=== PATIENT | female | born 1975 | race Caucasian/White ===

== ENCOUNTER 2018-02-04 09:00 | Inpatient (IN) | payer BC ==
[2018-02-04] MEDS: ELECTROLYTE-148 SOLN 1,000 ML IV SCH (10:00)
[2018-02-04] MEDS ORDERED: CITRIC ACID/SODIUM CITRATE 30 ML UNIT-DOSE CUP PO ONE (10:26)
[2018-02-04 10:47] VITALS: BMI 28.3
[2018-02-04] MEDS ORDERED: ONDANSETRON 4 MG/2 ML VIAL IVPUSH PRN (10:55)
[2018-02-04] MEDS ORDERED: morphine SULFATE/Preservative Free 0.5 MG/ML (1cc Syringe) EP ONE (10:55)
[2018-02-04] MEDS ORDERED: ceFAZolin SODIUM 1 GM VIAL ONE ×2 (11:02→18:34)
--- NOTE | 2018-02-04 11:06 | HP ---
Past Medical History - Primary Care Physician PCP:: Sander Orourke ( ) - Admission Chief Complaint: 39 weeks by date , 38 by sono, previous myomectomy, previous c/s , request of repeat c/s and BTL History of Present Illness: 42 yo f , with previous hx of myomectomy, one previous c/s, AMA , hx of bradycardia , admitted for repeat c/s and BTL , risks of repeat c/s with previous myomectomy, discussed , also aware BTL is permenant and has small failure risks and risks of ectopic History Source: Patient Limitations to Obtaining History: No Limitations - Past Medical History ...: 2 ...Para: 1 ...Term: 1 ...: 0 ...Spon : 0 ...Induced : 0 ...Multiple Gestation: 0 ...LMP: 07/14/17 ... Weeks Gestation by Dates: 39.3 ...EDC by Dates: 02/08/18 ...EDC by Sono: 02/17/18 Additional OB History: hx of romero cardia ,normal ECHO Heme/Onc: Yes: Anemia - Past Surgical History Past Surgical History: Yes: (previous myomectomy) Hx Myomectomy: Yes - Smoking History Smoking history: Never smoked Have you smoked in the past 12 months: No Aproximately how many cigarettes per day: 1 - Alcohol/Substance Use Hx Alcohol Use: No History of Substance Use: reports: None - Social History History of Recent Travel: No Home Medications - Allergies Allergies/Adverse Reactions: Allergies Allergy/AdvReac Type Severity Reaction Status Date / Time No Known Drug Allergies Allergy Verified 02/04/18 10:08 - Home Medications Home Medications: Ambulatory Orders Vit/Iron Fum/Folic AC [ Tablet] 1 each PO DAILY MDD 1 01/24/16 Ferrous Sulfate [Iron] 325 mg PO DAILY 02/04/18 Review of Systems - Review of Systems Constitutional: reports: No Symptoms Eyes: reports: No Symptoms HENT: reports: No Symptoms Neck: reports: No Symptoms Cardiovascular: reports: No Symptoms Respiratory: reports: No Symptoms Gastrointestinal: reports: No Symptoms Genitourinary: reports: No Symptoms Breasts: reports: No Symptoms Reported Musculoskeletal: reports: No Symptoms Integumentary: reports: No Symptoms Neurological: reports: No Symptoms Endocrine: reports: No Symptoms Hematology/Lymphatic: reports: No Symptoms Psychiatric: reports: No Symptoms Physical Exam - Maternity Vital Signs: Vital Signs Temperature 97.9 F 02/04/18 10:00 Pulse Rate 79 02/04/18 10:00 Respiratory Rate 18 02/04/18 10:00 Blood Pressure 125/84 02/04/18 10:00 O2 Sat by Pulse Oximetry (%) Constitutional: Yes: Well Nourished, No Distress, Calm Eyes: Yes: WNL, Conjunctiva Clear, EOM Intact HENT: Yes: WNL, Atraumatic, Normocephalic Neck: Yes: WNL, Supple, Trachea Midline Cardiovascular: Yes: WNL, Regular Rate and Rhythm Breast(s): Yes: WNL - Abdominal Exam/OB Fundal Height: 38 Number of Fetuses: Single Presentation: Vertex Contractions: No Intensity: Unaware Monitor Mode: External Heart Rate (range): 107 to 110 Heart Rate Location: [facility] Category: I - Vaginal Exam/OB Vaginal Bleediing: No Speculum Exam: No Dilatation (cm): closed Effacement (%): 0 Amniotic Membrane Status: Intact Presentation: Vertex/Position Station: -3 - Physical Exam Musculoskeletal: Yes: WNL Extremities: Yes: WNL Edema: Yes Edema: LLE: Trace, RLE: Trace Integumentary: Yes: WNL Deep Tendon Reflex Grade: Normal +2 ...Motor Strength: WNL Psychiatric: Yes: WNL Hemorrhage Risk Assessment - Risk Factors Medium Risk Factors: Yes: Prior , uterine surgery,or multiple laparotomies, Large myomas Risk Score: 2 Risk Level: High Risk Problem List - Problems (1) with 39 completed weeks gestation Code(s): Z3A.39 - 39 WEEKS GESTATION OF (2) Previous section complicating Code(s): O34.219 - MATERNAL CARE FOR UNSP TYPE SCAR FROM PREVIOUS DEL (3) H/O: myomectomy Code(s): Z98.89 - OTHER SPECIFIED POSTPROCEDURAL STATES * DO NOT USE * (4) Advanced maternal age (AMA) in Code(s): CAC9412 - (5) Sterilization Code(s): Z30.2 - ENCOUNTER FOR STERILIZATION (6) Bradycardic baseline heart rate Code(s): O36.8390 - MATERN CARE FOR ABNLT FETL HRT RATE OR RHYM, UNSP TRI, UNSP Assessment/Plan repeat c/s , BTL, rba discussed
[2018-02-04] MEDS ORDERED: ePHEDrine SULFATE 50 MG/1 ML AMPULE ONE (11:16)
[2018-02-04] MEDS ORDERED: SODIUM CHLORIDE 0.9% P/F 10 ML VIAL IJ ONE (11:16)
[2018-02-04] MEDS ORDERED: OXYTOCIN 20 UNITS in 0.9% NS 20 UNIT/1,000 ML INFUS.BAG IV ONE ×2 (11:27→13:50)
[2018-02-04] MEDS ORDERED: oxyCODONE HCL 5 MG TABLET PO PRN (12:29)
[2018-02-04] MEDS ORDERED: diphenhydrAMINE HCL 25 MG CAPSULE (FP) PO PRN (12:29)
[2018-02-04] MEDS ORDERED: BENZOCAINE 28 GM HEMORRHOIDAL OINTMENT PR PRN (12:29)
[2018-02-04] MEDS ORDERED: METHYLERGONOVINE MALEATE 0.2 MG/1 ML AMP IM PRN (12:29)
[2018-02-04] MEDS ORDERED: IBUPROFEN 800 MG/8 ML IJ IVPB PRN (12:29)
[2018-02-04] MEDS ORDERED: BENZOCAINE 20% 57 GM BOTTLE TP PRN (12:29)
[2018-02-04] MEDS ORDERED: WITCH HAZEL 50% (TUCKS) 40 PAD/JAR PAD TP PRN (12:29)
[2018-02-04] MEDS ORDERED: OXYTOCIN 20 UNITS in 0.9% NS 20 UNIT/1,000 ML INFUS.BAG IV SCH (12:30)
--- NOTE | 2018-02-04 13:19 | OP ---
DATE OF OPERATION: 02/04/2018 PREOPERATIVE DIAGNOSES: at 39 weeks by dates, previous myomectomy, previous section, advanced maternal age, voluntary sterilization, and bradycardia. POSTOPERATIVE DIAGNOSES: at 39 weeks by dates, previous myomectomy, previous section, advanced maternal age, voluntary sterilization, and bradycardia. PROCEDURE: Repeat low segment transverse section. SURGEON: Sander Peoples MD BARREL LATHE OPERATOR: Serena Marquez MD ESTIMATED BLOOD LOSS: 500 mL. FINDINGS: A live baby Apgars 9/9, ROT position. DESCRIPTION OF PROCEDURE: The patient was taken to the operating room under adequate epidural anesthesia. Abdomen and perineum were prepped and draped. Pfannenstiel abdominal skin incision was made. Abdominal wall was cut layer by layer until the peritoneum was exposed and incised. Upon entering the abdominal cavity, lower uterine segment was identified, and uterovesical fold of peritoneum established. Bladder was pushed down. A low transverse uterine incision was made. Incision was extended laterally. Amniotic sac was entered. Clear fluid. Head delivered from right occiput transverse position. Nasopharynx was suctioned, and live baby was delivered. Apgars 9/9. Placenta was delivered manually. Uterine cavity was cleaned of all remaining tissue. Uterine incision was closed in 2 layers, the first layer with 0 Biosyn continuous suture, the second layer with 0 Biosyn imbricating the first layer. Bladder flap was closed with 0 Biosyn continuous suture. Both tubes and ovaries were checked and were normal. Smiley was placed along the left tubal mesosalpinx and then the tube was removed with a cautery, and a clamp was replaced with a 0 Biosyn suture bilaterally. Both fallopian tubes were removed. Both ovaries were normal. No active bleeding was seen. All of the lap pad, sponge, and instrument counts were correct. Uterus had multiple fibroids on it intramural. Peritoneum was closed with 0 Biosyn continuous suture. Muscles were brought together with interrupted sutures of 0 Biosyn. Fascia was closed with 0 Biosyn continuous suture, subcutaneous fat interrupted suture of 0 Biosyn and the skin was closed with 4-0 Biosyn subcuticular suture. The patient tolerated the procedure well and left the OR in good condition. SANDER PEOPLES M.D. [id number]
[2018-02-04] MEDS: CEFAZOLIN 1 GM in DEXTROSE 5%-WATER 100 ML IVPB SCH (18:39)
[2018-02-04] MEDS: SIMETHICONE 80 MG TAB.CHEW (FP) PO PRN (23:02)
[2018-02-05] MEDS ORDERED: ceFAZolin SODIUM 1 GM VIAL ONE (01:08)
[2018-02-05] MEDS: CEFAZOLIN 1 GM in DEXTROSE 5%-WATER 100 ML IVPB SCH (01:16)
[2018-02-05 08:06] LABS: BASO % 0.2 % (0-2.0); EOS % 0.6 % (0-4.5); HEMATOCRIT 30.3 % (32.4-45.2); HEMOGLOBIN 10.1 GM/dL (10.7-15.3); LYMPH % 9.1 % (8-40); MCH 27.5 pg (25.7-33.7); MCHC 33.2 g/dl (32.0-36.0); MONO % 5.6 % (3.8-10.2); NEUT % 84.5 % (42.8-82.8); PLATELET COUNT 129 K/MM3 (134-434); RBC 3.65 M/mm3 (3.60-5.2); RDW 17.2 % (11.6-15.6); WHITE BLOOD COUNT 8.5 K/mm3 (4.0-10.0)
[2018-02-05] MEDS: ENOXAPARIN NA (PORCINE) 40 MG/0.4 ML DISP.SYRIN SQ SCH (08:59)
--- NOTE | 2018-02-05 11:15 | PN ---
Progress Note (short form) - Note Progress Note: Pot op day#1.S/P C section under spinal anesthesia with duramorph uneventful Patient stable and has little pain for which she is on medication.No any anesthesia related problem.Patient Dc from the anesthesia care.
[2018-02-05] MEDS ORDERED: BISACODYL 10 MG SUPP.RECT RC PRN (12:29)
[2018-02-05] MEDS: IBUPROFEN 600 MG TABLET (FP) PO PRN ×2 (17:51→22:04)
[2018-02-05] MEDS: SIMETHICONE 80 MG TAB.CHEW (FP) PO PRN ×2 (17:51→22:05)
[2018-02-05] MEDS: DEXTROSE 5%-LACTATED RINGERS 1,000 ML IV SCH (18:54)
[2018-02-05] MEDS: ELECTROLYTE-148 SOLN 1,000 ML IV SCH (18:54)
[2018-02-05] MEDS: SENNOSIDES/DOCUSATE COMBO (SENNA PLUS) TABLET (UD) PO PRN (22:05)
[2018-02-06] MEDS: IBUPROFEN 600 MG TABLET (FP) PO PRN ×4 (04:47→22:11)
[2018-02-06] MEDS: SIMETHICONE 80 MG TAB.CHEW (FP) PO PRN ×4 (04:47→22:10)
[2018-02-06] MEDS: oxyCODONE HCL 5 MG TABLET PO PRN ×4 (04:49→22:11)
--- NOTE | 2018-02-06 07:04 | PN ---
Post Progress Note - Subjective Subjective: 42 yo status post repeat , seen and evaluated. No complaints Post Day: 1 Type of Delivery: Repeat C/S Vital Signs: Vital Signs Temperature 97.9 F 02/05/18 21:40 Pulse Rate 71 02/05/18 21:40 Respiratory Rate 18 02/05/18 21:40 Blood Pressure 125/71 02/05/18 21:40 O2 Sat by Pulse Oximetry (%) 100 02/04/18 14:30 Breast Exam: Yes: Soft Incision: Yes: Dressing dry and intact Abdomen/GI: Yes: Abdomen soft Lochia: Yes: Rubra Lochia, amount: Small Extremities: Yes: Calves non-tender Perineum: Yes: Intact Activity: Ambulating - Labs Labs: CBC WBC 8.5 K/mm3 (4.0-10.0) D 02/05/18 07:35 RBC 3.65 M/mm3 (3.60-5.2) 02/05/18 07:35 Hgb 10.1 GM/dL (10.7-15.3) L 02/05/18 07:35 Hct 30.3 % (32.4-45.2) L 02/05/18 07:35 MCV 83.0 fl (80-96) 02/05/18 07:35 MCH 27.5 pg (25.7-33.7) 02/05/18 07:35 MCHC 33.2 g/dl (32.0-36.0) 02/05/18 07:35 RDW 17.2 % (11.6-15.6) H 02/05/18 07:35 Plt Count 129 K/MM3 (134-434) L 02/05/18 07:35 MPV 8.0 fl (7.5-11.1) 02/05/18 07:35 Absolute Neuts (auto) 7.2 # 02/05/18 07:35 Neutrophils % 84.5 % (42.8-82.8) H D 02/05/18 07:35 Lymphocytes % 9.1 % (8-40) D 02/05/18 07:35 Monocytes % 5.6 % (3.8-10.2) 02/05/18 07:35 Eosinophils % 0.6 % (0-4.5) D 02/05/18 07:35 Basophils % 0.2 % (0-2.0) 02/05/18 07:35 Nucleated RBC % 0 % (0-0) 02/05/18 07:35 Problem List - Problems (1) Status post repeat low transverse section Code(s): Z98.891 - HISTORY OF UTERINE SCAR FROM PREVIOUS SURGERY Assessment/Plan Status post repeat Stable Ambulation Analgesia as needed Continue routine post op care
[2018-02-06] MEDS: ENOXAPARIN NA (PORCINE) 40 MG/0.4 ML DISP.SYRIN SQ SCH (09:24)
--- NOTE | 2018-02-06 10:25 | PN ---
Post Progress Note - Subjective Subjective: Patient without acute complaints. Reports tolerating oral intake without nausea or vomiting. Ambulating without dizziness. Denies fevers or chills. Pain well controlled with oral pain medication. without difficulty. Passing flatus. Post Day: 2 Type of Delivery: Repeat C/S Vital Signs: Vital Signs Temperature 97.9 F 02/05/18 21:40 Pulse Rate 71 02/05/18 21:40 Respiratory Rate 18 02/05/18 21:40 Blood Pressure 125/71 02/05/18 21:40 O2 Sat by Pulse Oximetry (%) 100 02/04/18 14:30 Breast Exam: Yes: Soft Uterus: Yes: Fundus Firm Incision: Yes: Dressing dry and intact Abdomen/GI: Yes: Abdomen soft, Tender (mild incisional), Passing flatus, Tolerating PO. No: Abdominal Distention Lochia: Yes: Serosa Lochia, amount: Small Extremities: Yes: Calves non-tender, Edema (trace pedal) Activity: Ambulating - Labs Labs: CBC WBC 8.5 K/mm3 (4.0-10.0) D 02/05/18 07:35 RBC 3.65 M/mm3 (3.60-5.2) 02/05/18 07:35 Hgb 10.1 GM/dL (10.7-15.3) L 02/05/18 07:35 Hct 30.3 % (32.4-45.2) L 02/05/18 07:35 MCV 83.0 fl (80-96) 02/05/18 07:35 MCH 27.5 pg (25.7-33.7) 02/05/18 07:35 MCHC 33.2 g/dl (32.0-36.0) 02/05/18 07:35 RDW 17.2 % (11.6-15.6) H 02/05/18 07:35 Plt Count 129 K/MM3 (134-434) L 02/05/18 07:35 MPV 8.0 fl (7.5-11.1) 02/05/18 07:35 Absolute Neuts (auto) 7.2 # 02/05/18 07:35 Neutrophils % 84.5 % (42.8-82.8) H D 02/05/18 07:35 Lymphocytes % 9.1 % (8-40) D 02/05/18 07:35 Monocytes % 5.6 % (3.8-10.2) 02/05/18 07:35 Eosinophils % 0.6 % (0-4.5) D 02/05/18 07:35 Basophils % 0.2 % (0-2.0) 02/05/18 07:35 Nucleated RBC % 0 % (0-0) 02/05/18 07:35 Assessment/Plan 42 yo POD # 2 s/p repeat CD, afebrile, vital signs stable, doing well 1. Continue routine postoperative care. 2. Encourage ambulation and incentive spirometer use 3. Continue oral pain medication 4. Discussed and pumping with patient 5. Anticipate discharge home postoperative day #4
[2018-02-06] MEDS: SENNOSIDES/DOCUSATE COMBO (SENNA PLUS) TABLET (UD) PO PRN (22:10)
[2018-02-06] MEDS: ACETAMINOPHEN 325 MG TABLET (FP) PO PRN (22:11)
[2018-02-07] MEDS: IBUPROFEN 600 MG TABLET (FP) PO PRN ×4 (03:39→21:28)
[2018-02-07] MEDS: ACETAMINOPHEN 325 MG TABLET (FP) PO PRN ×4 (03:39→21:29)
[2018-02-07] MEDS: SIMETHICONE 80 MG TAB.CHEW (FP) PO PRN ×2 (03:39→21:28)
--- NOTE | 2018-02-07 07:40 | PN ---
Progress Note (short form) - Note Progress Note: pod 3 ambulating , passing gas CBC, BMP 02/05/18 07:35 Last Vital Signs Temp Pulse Resp BP Pulse Ox 98.4 F 74 18 131/80 100 02/06/18 22:00 02/06/18 22:00 02/06/18 22:00 02/06/18 22:00 02/04/18 14:30 abdomen soft, no distension, no cva incision dry, clean no calf tenderness plan for d/c home in am Problem List - Problems (1) with 39 completed weeks gestation Code(s): Z3A.39 - 39 WEEKS GESTATION OF (2) Previous section complicating Code(s): O34.219 - MATERNAL CARE FOR UNSP TYPE SCAR FROM PREVIOUS DEL (3) H/O: myomectomy Code(s): Z98.89 - OTHER SPECIFIED POSTPROCEDURAL STATES * DO NOT USE * (4) Advanced maternal age (AMA) in Code(s): [id number] - (5) Sterilization Code(s): Z30.2 - ENCOUNTER FOR STERILIZATION (6) Bradycardic baseline heart rate Code(s): O36.8390 - MATERN CARE FOR ABNLT FETL HRT RATE OR RHYM, UNSP TRI, UNSP
[2018-02-07 07:55] LABS: BASO % 0.6 % (0-2.0); EOS % 4.2 % (0-4.5); HEMATOCRIT 29.2 % (32.4-45.2); HEMOGLOBIN 9.8 GM/dL (10.7-15.3); LYMPH % 30.2 % (8-40); MCH 27.7 pg (25.7-33.7); MCHC 33.6 g/dl (32.0-36.0); MEAN CELL VOLUME 82.4 fl (80-96); MEAN PLT VOLUME 7.5 fl (7.5-11.1); MONO % 5.1 % (3.8-10.2); NEUT % 59.9 % (42.8-82.8); PLATELET COUNT 158 K/MM3 (134-434); RBC 3.54 M/mm3 (3.60-5.2); RDW 17.6 % (11.6-15.6); WHITE BLOOD COUNT 5.9 K/mm3 (4.0-10.0)
[2018-02-07] MEDS: ENOXAPARIN NA (PORCINE) 40 MG/0.4 ML DISP.SYRIN SQ SCH (09:37)
[2018-02-07 22:48] VITALS: PULSE 76
[2018-02-08] MEDS: ACETAMINOPHEN 325 MG TABLET (FP) PO PRN ×2 (01:29→08:12)
[2018-02-08] MEDS: IBUPROFEN 600 MG TABLET (FP) PO PRN ×3 (01:30→13:07)
[2018-02-08] MEDS: SIMETHICONE 80 MG TAB.CHEW (FP) PO PRN ×3 (01:31→13:06)
[2018-02-08 08:19] VITALS: BP 119/86; TEMP 98
[2018-02-08] MEDS: ENOXAPARIN NA (PORCINE) 40 MG/0.4 ML DISP.SYRIN SQ SCH (09:29)
--- NOTE | 2018-02-08 09:45 | DS ---
Physical Exam-BLOW PIT HELPER Vital Signs: Vital Signs Temperature 98 F 02/08/18 08:18 Pulse Rate 76 02/08/18 08:18 Respiratory Rate 20 02/08/18 08:18 Blood Pressure 119/86 02/08/18 08:18 O2 Sat by Pulse Oximetry (%) 100 02/04/18 14:30 Constitutional: Yes: Well Nourished, No Distress, Calm Eyes: Yes: WNL, Conjunctiva Clear, EOM Intact HENT: Yes: WNL, Atraumatic, Normocephalic Neck: Yes: WNL, Supple, Trachea Midline Cardiovascular: Yes: WNL, Regular Rate and Rhythm Respiratory: Yes: WNL, Regular, CTA Bilaterally Gastrointestinal: Yes: WNL ...Rectal Exam: Yes: WNL Renal/: Yes: WNL ....Post : Yes: Uterus firm, Uterus non-tender, Slight lochia rubra Breast(s): Yes: WNL Musculoskeletal: Yes: WNL Extremities: Yes: WNL Edema: No Integumentary: Yes: WNL Wound/Incision: Yes: Clean/Dry, Well Approximated, Sutures Intact Neurological: Yes: WNL, Alert, Oriented ...Motor Strength: WNL Psychiatric: Yes: WNL, Alert, Oriented Labs: CBC, BMP 02/07/18 07:00 Delivery - Delivery Section: Repeat Type of Anesthesia: Spinal Episiotomy/Laceration: None EBL (cc): 500 Delivery, Single - Stages of Labor Date of Delivery: 02/04/18 Time of Delivery: 11:29 Time Placenta Delivered: 11:30 - Condition of Infant Slot Operations Director/Phlebotomy Services Representative Present: Yes Name: Primitivo Greenwood Infant Gender: Female Weight: 6 lb 14 oz Position: Right, OT Total Hours ROM (Hrs/Mins): 2mins - 1 Minute Total Score: 9 5 Minutes Total Score: 9 - [place] Feeding Plan Initial Plan: Elected not to breastfeed exclusively throughout hospitalization Discharge Summary Reason For Visit: Current Active Problems Advanced maternal age (AMA) in (Acute) Bradycardic baseline heart rate (Acute) with 39 completed weeks gestation (Acute) Previous section complicating (Acute) Status post repeat low transverse section (Acute) Sterilization (Acute) Procedures: Principal: repeat LST c/s Other Procedures: BTL Condition: Good - Instructions Diet, Activity, Other Instructions: regular diet, follow up office 1 week, if fever, pain, heavy vaginal bleeding call MD Referrals: Sander Orourke MD [Staff Physician] - Disposition: HOME - Home Medications Comprehensive Discharge Medication List: Ambulatory Orders Vit/Iron Fum/Folic AC [ Tablet] 1 each PO DAILY MDD 1 01/24/16 Ferrous Sulfate [Iron] 325 mg PO DAILY 02/04/18 Ibuprofen [Motrin -] 600 mg PO QID #28 tablet 02/06/18
--- NOTE | 2018-02-10 13:25 | PATH ---
Surgical Pathology Report Patient Name: RASHAWN SANTIAGO [facility]. Rec. #: [id number] /Age/Gender: 1975 (Age: 42) / F Account: [id number] Location: [facility] OBS/STRATEGIC ACCOUNTS MANAGER Taken: 02/04/2018 Received: 02/05/2018 Reported: 02/10/2018 Physicians: Sander Orourke M.D. Specimen(s) Received A: PLACENTA B: LEFT PORTION OF FALLOPIAN TUBE C: RIGHT PORTION OF FALLOPIAN TUBE Clinical History 2 para 1, previous myomectomy, previous section, term gestation Final Diagnosis A. PLACENTA: THIRD TRIMESTER PLACENTA WITH FOCAL INFARCTION (1.5 CM IN LARGEST DIMENSION). TRIVASCULAR CORD. MEMBRANES WITH NO DIAGNOSTIC ABNORMALITIES. B. LEFT PORTION OF FALLOPIAN TUBE: COMPLETE CROSS SECTION OF THE FALLOPIAN TUBE IDENTIFIED. C. RIGHT PORTION OF FALLOPIAN TUBE: COMPLETE CROSS SECTION OF THE FALLOPIAN TUBE IDENTIFIED. Electronically Signed Annalise Martinez M.D. Gross Description A. The specimen is received fresh labeled placenta and is a 597 gram, 16 x 14 x 4 cm. placenta with attached membranes and umbilical cord. The attached membranes are glistening and translucent and insert marginally. The umbilical cord measures 23 cm. in length and averages 1.1 cm. in diameter. The cord inserts eccentrically, 3.5 cm. to the nearest margin. No true knots or strictures are identified. Cut surface of the umbilical cord reveals 3 vessels. The surface is delgado-blue with minimal fibrin deposition and appropriate caliber vessels. The maternal surface is red-brown with focal defects. Sectioning reveals red-brown, spongy parenchyma. No lesions are identified. Hydraulic Engineer sections are submitted in three cassettes as follows: 1- membrane rolls and umbilical cord; 2-3- full thickness sections of placenta. B. Received fresh labelled "left portion fallopian tube" is a 3.8 cm long by 0.6 cm in diameter portion of tissue consistent with a portion of fallopian tube. The fimbriated end is present No focal lesions are identified. Hydraulic Engineer sections are submitted in one cassette. C. Received fresh labelled "right portion of fallopian tube" is a 4.5 cm long by 0.7 cm in diameter portion of tissue consistent with a portion of fallopian tube. The fimbriated end is present. A 0.3 cm paratubal cyst is present. No focal lesions are identified. Hydraulic Engineer sections are submitted in one cassette. [facility]/02/06/2018 [facility]/02/06/2018
== END 2018-02-08 14:20 | disposition home or self-care (01) | DRG 766 ==
LOC: JLDR 09:45 → J3W 14:40
PROVIDERS: ADMIT Obstetrics & Gynecology; ATTEND Obstetrics & Gynecology
PROC: 10D00Z1 Extraction of Products of Conception, Low, Open Approach (ICD-10-PCS; principal; 2018-02-04)
PROC: 0UB70ZZ Excision of Bilateral Fallopian Tubes, Open Approach (ICD-10-PCS; 2018-02-04)
DX: O76 Abnormality in fetal heart rate and rhythm complicating labor and delivery (principal); O34.211 Maternal care for low transverse scar from previous cesarean delivery; Z3A.39 39 weeks gestation of pregnancy; Z30.2 Encounter for sterilization; Z37.0 Single live birth
CPT/HCPCS: 36415; 85025; 88302-TC; 88307-TC

== ENCOUNTER 2022-02-06 04:40 | Day surgery (SDC) | payer BC ==
[2022-02-05 15:55] VITALS: BMI 24.3
[2022-02-06 07:31] VITALS: TEMP 97
[2022-02-06] MEDS ORDERED: DEXAMETHASONE SOD PHOSPHATE 4 MG/1 ML VIAL ONE (08:39)
[2022-02-06] MEDS ORDERED: PROPOFOL 20 ML ONE (08:39)
[2022-02-06] MEDS ORDERED: FENTANYL CITRATE/PF 50 MCG/ML VIAL ONE ×3 (08:39→10:27)
[2022-02-06] MEDS ORDERED: LIDOCAINE HCL/PF 2% SDV 5ML VIAL ONE (08:39)
[2022-02-06] MEDS ORDERED: MIDAZOLAM HCL 2 MG/2 ML SINGLE DOSE VIAL ONE (08:40)
[2022-02-06] MEDS ORDERED: ceFAZolin SODIUM 1 GM VIAL IVPB ONE (09:04)
[2022-02-06] MEDS ORDERED: ceFAZolin SODIUM 1 GM VIAL ONE (09:07)
[2022-02-06] MEDS ORDERED: oxyCODONE HCL 5 MG TABLET PO PRN ×2 (09:07→09:56)
[2022-02-06] MEDS ORDERED: ONDANSETRON 4 MG/2 ML VIAL IVPUSH PRN ×2 (09:07→09:56)
[2022-02-06] MEDS ORDERED: LACTATED RINGERS SOLUTION 1,000 ML IV SCH (09:15)
[2022-02-06] MEDS ORDERED: IBUPROFEN 800 MG/8 ML IJ IVPB PRN (09:56)
[2022-02-06] MEDS ORDERED: IBUPROFEN 600 MG TABLET (FP) PO PRN (09:56)
[2022-02-06] MEDS ORDERED: ELECTROLYTE-148 SOLN 1,000 ML IV SCH (10:00)
[2022-02-06] MEDS ORDERED: ePHEDrine SULFATE 50 MG/1 ML AMPULE ONE ×2 (11:24→11:32)
[2022-02-06] MEDS ORDERED: ONDANSETRON 4 MG/2 ML VIAL ONE (11:28)
[2022-02-06] MEDS ORDERED: oxyCODONE HCL 5 MG TABLET PO ONE (12:41)
[2022-02-06] MEDS ORDERED: oxyCODONE HCL 5 MG TABLET ONE (12:47)
[2022-02-06 14:09] VITALS: BP 104/59; PULSE 29
== END 2022-02-06 14:30 | disposition home or self-care (01) ==
LOC: JASU-SURG 04:40
PROVIDERS: ATTEND Obstetrics & Gynecology
PROC: 0U5B8ZZ Destruction of Endometrium, Via Natural or Artificial Opening Endoscopic (ICD-10-PCS; principal; 2022-02-06 09:00)
DX: N92.0 Excessive and frequent menstruation with regular cycle (principal); N94.6 Dysmenorrhea, unspecified
CPT/HCPCS: 81025; 88305-TC; 94760

== ENCOUNTER 2022-04-30 16:10 | Emergency (ER) | payer BC ==
[2022-04-30 16:23] VITALS: BP 129/74; PULSE 61; RESP 18; TEMP 97.9; BMI 26.6
[2022-04-30] MEDS ORDERED: SODIUM CHLORIDE 1,000 ML IV STA (16:55)
[2022-04-30] MEDS ORDERED: ONDANSETRON 4 MG/2 ML VIAL IVPUSH ONE (17:18)
[2022-04-30] MEDS ORDERED: ONDANSETRON 4 MG/2 ML VIAL ONE (17:19)
[2022-04-30 17:35] LABS: HEMATOCRIT 36.3 % (32.4-45.2); HEMOGLOBIN 12.6 G/dL (10.7-15.3); MCH 28.9 pg (25.7-33.7); MCHC 34.7 g/dl (32.0-36.0); MEAN CELL VOLUME 83.1 fl (80-96); MEAN PLT VOLUME 8.2 fl (7.5-11.1); PLATELET COUNT 244.2 10^3/uL (134-434); RBC 4.37 10^6/uL (3.60-5.2); RDW 14.3 % (11.6-15.6); WHITE BLOOD COUNT 10.3 10^3/uL (4.0-10.8)
[2022-04-30 17:44] LABS: ALK PHOS 48 U/L (45-117); ANION GAP 11 MMOL/L (8-16); BILIRUBIN,TOTAL 0.8 mg/dl (0.2-1); CALCIUM 9.4 mg/dl (8.5-10); CHLORIDE 101 mmol/L (98-107); CO2 23 mmol/L (21-32); CREATININE 0.6 mg/dl (0.55-1.3); GLUCOSE,RANDOM 116 mg/dl (74-106); MAGNESIUM 2.1 mg/dL (1.8-2.4); SGOT/AST 15 U/L (15-37); SGPT/ALT 13 U/L (13-61); SODIUM 135 mmol/L (136-145); TOT PROT 7.3 g/dl (6.4-8.2)
[2022-04-30] MEDS ORDERED: ACETAMINOPHEN 325 MG TABLET (FP) PO ONE (18:48)
[2022-04-30] MEDS ORDERED: ACETAMINOPHEN 325 MG TABLET (FP) ONE (18:58)
== END 2022-04-30 19:20 | disposition home or self-care (01) ==
LOC: FER 16:10
PROC: 3E033GC Introduction of Other Therapeutic Substance into Peripheral Vein, Percutaneous Approach (ICD-10-PCS; principal; 2022-04-30)
PROC: 3E0337Z Introduction of Electrolytic and Water Balance Substance into Peripheral Vein, Percutaneous Approach (ICD-10-PCS; 2022-04-30)
DX: R42 Dizziness and giddiness (principal)
CPT/HCPCS: 36415; 80053; 83735; 84484; 85027; 93005; 99284-25